=== PATIENT | female | born 1995 | race Caucasian/White ===

== ENCOUNTER → 2023-09-23 12:04 | Outpatient (BNVA) | payer OTHER, SELFPAY | PROVIDERS: Visit Provider Nurse Practitioner | DX: S69.92XA Unspecified injury of left wrist, hand and finger(s), initial encounter (principal); X58.XXXA Exposure to other specified factors, initial encounter | CPT/HCPCS: 73130 ==

== ENCOUNTER 2024-08-14 13:31 | Emergency (ER) | payer SELFPAY ==
[2024-08-14 13:40] VITALS: BP 120/81; PULSE 100; TEMP 36.8; O2SAT 98; BMI 22.6
--- NOTE | 2024-08-14 13:48 | XR_ITS ---
WS: [id number] XR KUB [id number] REASON FOR EXAM: constipation/abdominal pain FINDINGS: No free air or retroperitoneal air. Large retained stool volume in the transverse and left colon and rectosigmoid and rectum. No mass or significant calcification. Lumbar spine and bony pelvis are intact. XR/XR KUB [id number] IMPRESSION: Large retained stool volume as above.
--- NOTE | 2024-08-14 13:48 | ED_ITS ---
HPI - Abdominal Pain 2 General: Chief Complaint: Abdominal Pain Stated Complaint: unable to BM 2 weeks Time Seen by Provider: 08/14/24 13:33 Source: patient Mode of arrival: ambulatory Limitations: no limitations History of Present Illness: Patient is a 28-year-old female presents to ED today with a complaint of constipation. She states she has not had a bowel movement 2 weeks. Patient states she recently got diagnosed with alpha gal and got pumped full of antibiotics and steroids . Reportedly has not had a bowel movement since then. She is having abdominal pain and a severe fullness sensation to her rectum. She has tried [id number] medications without relief. She is not running fevers. No vomiting. Still passing flatulence. Does states she has a longstanding history of constipation. MD elicited complaint: abdominal pain and other (constipation) Pertinent past history: constipation Onset (ago): week(s) Pain Consistency: intermittent Severity: moderate Quality: fullness (rectum) Radiation: none Migration to: no migration Relieving factors: nothing Associated Symptoms: Reports constipation; Denies chills, diarrhea, dysuria, fever(s), hematochezia, fecal incontinence, melena, nausea and vomiting Related Data Home Medications Medication Instructions Recorded Confirmed hydroxyzine HCl 25 mg tablet 25 mg PO TID PRN ITCHING 08/14/24 08/14/24 Allergies Allergy/AdvReac Type Severity Reaction Status Date / Time Alpha-Gal Allergy ALGY-Rash Verified 08/14/24 13:47 ([id number]-0,3-Gala Review of Systems 2 Const: Denies: fever(s), chills, body aches, fatigue or malaise Card: Denies: chest pain Resp: Denies: dyspnea GI: Reports: abdominal pain and constipation; Denies: nausea, vomiting, diarrhea, fecal incontinence, rectal itching, hematochezia or melena : Denies: flank pain or dysuria Musc: Denies: neck pain, back pain, extremity pain, extremity swelling, joint pain or joint swelling Skin/Breast: Reports: rash (states related to her recent alpha gal diagnosis) Neuro: Denies: headache(s) or dizziness Physical Exam 2 Const: COMMON NORMALS: average body habitus, patient oriented x3, no limitations, healthy appearing, alert and well nourished GENERAL APPEARANCE: cooperative Eye: COMMON NORMALS: no scleral icterus Resp: COMMON NORMALS: normal respiratory effort and clear to auscultation bilaterally AUSCULTATION: clear to auscultation bilaterally Cardio: COMMON NORMALS: regular rate and regular rhythm RATE: regular rate RHYTHM: regular rhythm GI: COMMON NORMALS: Normal to inspection, nondistended, normoactive bowel sounds present, Soft to palpation, non-tender, No hepatosplenomegaly present and no masses INSPECTION: Yes normal to inspection PALPATION: Yes Soft to palpation and Yes No hepatosplenomegaly present RECTAL EXAM: visual inspection normal, normal sphincter tone and fecal impaction : COMMON NORMALS: Yes no CVA tenderness BLADDER/KIDNEY EXAM: Yes no CVA tenderness Back/Pelvis: COMMON NORMALS: no CVA tenderness and thoracic and lumbar spine normal to inspection Extremity: GENERAL: Yes normal exam except as noted Neuro: SHELLY COMA SCALE: document GCS findings Shelly coma scale eye opening: Spontaneous Shelly coma scale verbal response: Orientated [place] coma scale motor response: Obey commands Cat[place] coma scale total score: 15 COMMON NORMALS: patient oriented x3, moves all extremities, no focal motor deficits and no sensory deficits noted SENSORIUM/ORIENTATION: Yes alert Skin: NARRATIVE SKIN EXAM: diffuse plaque like rash-states this is related to her recent alpha gal diagnosis; reportedly improving since medication Course 2 Vital Signs: Vital signs: Vital Signs Temperature 98.2 F 08/14/24 13:40 Pulse Rate 100 08/14/24 13:40 Blood Pressure 120/81 08/14/24 13:40 Pulse Oximetry 98 08/14/24 13:40 Oxygen Delivery Me thod Room Air 08/14/24 13:40 MDM - Abdominal Pain Medical Decision Making Patient's vital signs are stable. Her blood work overall is nonactionable. She does have minor derangements including mild thrombocytopenia at 134. Minor elevations to her LFTs. Recommend she follow-up with primary care for these. KUB showing a large retained stool volume. She was initially given a mineral oil enema without success. She later was given a saline fleet enema. Patient had an very very large bowel movement following this and feels significantly better. I did check with pharmacy on safe OTC constipation meds with alpha gal. She was given a mixture of magnesium citrate, mineral oil, and milk of magnesia to be taken when she gets home to further evacuate her bowel. Medical Records I reviewed the patient's medical records. Lab Data I reviewed the patient's lab results. 08/14/24 14:08 08/14/24 14:08 Labs/Radiology: Radiology Impressions KUB X-Ray 08/14/24 13:48 IMPRESSION: Large retained stool volume as above. Laboratory Results WBC 4.13 10^3/uL (3.29-11.43) 08/14/24 14:08 RBC 3.92 10^6/uL (3.85-5.65) 08/14/24 14:08 Hgb 13.60 g/dL (11.27-16.99) 08/14/24 14:08 Hct 40.2 % (36-47) 08/14/24 14:08 MCV 102.6 fl (85-98) H 08/14/24 14:08 MCH 34.7 pg (27-33) H 08/14/24 14:08 MCHC 33.8 g/dL (30-55) 08/14/24 14:08 RDW 12.6 % (12.1-15.1) 08/14/24 14:08 Plt Count 134 10^3/cmm (157-399) L 08/14/24 14:08 MPV 9.1 fL (7.4-10.4) 08/14/24 14:08 Neut % (Auto) 55.6 % 08/14/24 14:08 Lymph % (Auto) 19.4 % 08/14/24 14:08 [place] % (Auto) 10.4 % 08/14/24 14:08 Eos % (Auto) 10.7 % 08/14/24 14:08 Baso % (Auto) 2.2 % 08/14/24 14:08 Neut # (Auto) 2.30 10^3/uL (1.8-7.7) 08/14/24 14:08 Lymph # (Auto) 0.8 10^3/uL (0.8-4.8) 08/14/24 14:08 [place] # (Auto) 0.4 10^3/uL (0.2-0.9) 08/14/24 14:08 Eos # (Auto) 0.4 10^3/uL (0.0-0.8) 08/14/24 14:08 Baso # (Auto) 0.1 10^3/uL (0.0-0.1) 08/14/24 14:08 Nucleated RBC % (auto) 0 % 08/14/24 14:08 Nucleated RBCs # 0.0 /100WBC 08/14/24 14:08 Sodium 141 mmol/L (136-145) 08/14/24 14:08 Potassium 4.0 mmol/L (3.5-5.1) 08/14/24 14:08 Chloride 104 mmol/L (98-107) 08/14/24 14:08 Carbon Dioxide 19 mmol/L (22-29) L 08/14/24 14:08 Anion Gap 22.0 (5-19) H 08/14/24 14:08 BUN 4 mg/dL (6-20) L 08/14/24 14:08 Creatinine 0.5 mg/dL (0.5-0.9) 08/14/24 14:08 GFR Calculation 149.1 mL/min (90-130) H 08/14/24 14:08 Glucose 79 mg/dL (65-115) 08/14/24 14:08 Calculated Osmolality 288 mOsm/kg (285-295) 08/14/24 14:08 Calcium 8.4 mg/dL (8.5-10.5) L 08/14/24 14:08 Total Bilirubin 0.7 mg/dL (0.15-1.2) 08/14/24 14:08 AST 140 U/L (0-32) H 08/14/24 14:08 ALT 78 U/L (0-33) H 08/14/24 14:08 Alkaline Phosphatase 99 U/L (35-105) 08/14/24 14:08 Total Protein 7.1 g/dL (6.6-8.7) 08/14/24 14:08 Albumin 4.4 g/dL (3.5-5.2) 08/14/24 14:08 Globulin 2.7 g/dL (1.3-4.6) 08/14/24 14:08 Lipase 31 U/L (13-60) 08/14/24 14:08 HCG, Qual Negative (Negative) 08/14/24 14:08 All radiology interpretation(s) finalized by discharge Discharge Plan Discharge Patient Disposition: Home Clinical Impression: Constipation Qualifiers: Constipation type: unspecified constipation type Qualified Code(s): K59.00 - Constipation, unspecified Condition: Stable Prescriptions: No Action hydroxyzine HCl 25 mg Tablet 25 mg PO TID PRN (Reason: ITCHING ) Discharge Orders: Discharge ED (Routine); Ordered 08/14/24 Ordered By: Lelo Britton Patient Instructions: Constipation - Adult, Constipation (DC), Fleet Enema (ED) Activity Restrictions/Additional Instructions: As we discussed, I checked with our pharmacy staff who stated that milk of magnesia and magnesium citrate are both okay to take with alpha gal. These both are available [id number]. You have been given oral medications to take when you get home for further relief of your constipation. Make sure you are drinking plenty of fluid. You may follow-up with primary care by the end of the week if symptoms do not improve. Coding Level of Care Code ED [employer] Specialist for [employer]ett
[2024-08-14 14:16] LABS: Basophils # 0.1 10^3/uL (0.0-0.1); Basophils % 2.2 %; Eosinophils # 0.4 10^3/uL (0.0-0.8); Eosinophils % 10.7 %; Hematocrit 40.2 % (36-47); Lymphocytes # 0.8 10^3/uL (0.8-4.8); Lymphocytes % 19.4 %; Mean Corpuscular HGB Conc 33.8 g/dL (30-55); Mean Corpuscular Hemoglobin 34.7 pg (27-33); Mean Corpuscular Volume 102.6 fl (85-98); Mean Platelet Volume 9.1 fL (7.4-10.4); Monocytes # 0.4 10^3/uL (0.2-0.9); Monocytes % 10.4 %; Neutrophils % 55.6 %; Nucleated Red Blood Cells % 0 %; Platelet Count 134 10^3/cmm (157-399); Red Blood Count 3.92 10^6/uL (3.85-5.65); Red Cell Distribution Width 12.6 % (12.1-15.1); White Blood Count 4.13 10^3/uL (3.29-11.43)
[2024-08-14] MEDS: mineral oil ENEMA 133 mL PR (14:18)
[2024-08-14 14:26] LABS: HCG, Serum Qual Negative (Negative)
[2024-08-14 14:33] LABS: Alanine Aminotransferase 78 U/L (0-33); Albumin Level 4.4 g/dL (3.5-5.2); Alkaline Phosphatase 99 U/L (35-105); Aspartate Amino Transferase 140 U/L (0-32); Blood Urea Nitrogen 4 mg/dL (6-20); Calcium 8.4 mg/dL (8.5-10.5); Carbon Dioxide 19 mmol/L (22-29); Chloride 104 mmol/L (98-107); Globulin 2.7 g/dL (1.3-4.6); Glomerular Filtration Rate 149.1 mL/min (90-130); Glucose 79 mg/dL (65-115); Lipase 31 U/L (13-60); Osmolality Calculated 288 mOsm/kg (285-295); Sodium 141 mmol/L (136-145); Total Bilirubin 0.7 mg/dL (0.15-1.2); Total Protein 7.1 g/dL (6.6-8.7)
[2024-08-14] MEDS: Fleet Enema 133 mL Enema PR (15:56)
[2024-08-14] MEDS: magnesium hydroxide 30 mL UDC PO (16:24)
[2024-08-14] MEDS: mineral oil 30 mL UDC PO (16:24)
[2024-08-14] MEDS: magnesium citrate Btl 296 mL 150 ML PO (16:24)
--- NOTE | 2024-08-14 16:45 | PC.NURSE ---
pt had massive large bm output.
== END 2024-08-14 16:49 | disposition home or self-care (01) ==
PROVIDERS: Emergency Provider Physician Assistant
DX: K59.00 Constipation, unspecified (principal)
CPT/HCPCS: 36415; 74018; 80053; 83690; 84703; 85025; 99284